=== PATIENT | female | born 1940 | race Caucasian/White ===

== ENCOUNTER 2024-03-23 22:33 | Observation (INO) | payer MEDICARE, SELFPAY ==
--- NOTE | ~2024-03-23 | XR_ITS ---
Portable chest x-ray Comparison: None Clinical History: Pneumonia Findings: Possible minimal right perihilar haziness. Possible minimal interstitial prominence diffus roxy. Cardiomediastinal silhouette is unremarkable. Bones and soft tissues are unremarkable. Impression: Suspected mild haziness the right perihilar region. Correlate for minimal pulmonary edema or early/mi ld pneumonia. Possible minimal interstitial edema versus chronic interstitial disease/COPD change. Reviewed, dictated and finalized at [facility]. EMS APPLICATIONS PROGRAMMING LEAD Impression: Suspected mild haziness the right perihilar region. Correlate for minimal pulmo nary edema or early/mild pneumonia. Possible minimal interstitial edema versus chronic interstitial disease/COPD sayra armando.
--- NOTE | ~2024-03-23 | CT_ITS ---
History: Fall PROCEDURE: CT head without contrast. COMPARISON: None TECHNIQUE: Axial imaging of the head performed from the skull base to the vertex without IV contrast. Sagittal a nd coronal reformations obtained. Examination is limited by motion artifact DLP: 1513 mGy-cm FINDINGS: The ventricles are enlarged. The dilatation of the ventricles is proportional to the degree of sulcal prominence, not uncommon in the senescent brain. Decreased attenuation is identified within the periventricular white matter, likely secondary to micr ovascular ischemic disease, in a patient of this age. Encephalomalacia and gliosis is identified within the left frontal lobe for which prior cerebral infa rction is suspected. Increased attenuation is identified adjacent to the anterior horn of the left lateral ventricle, poss ibly acute hemorrhage. There is no discrete mass, mass effect or midline shift. Opacification of the left sphenoid sinus. Remaining paranasal sinuses are unremarkable. The mastoid air cells are well aerated. No acute displaced fractures within the overlying cranium. No sequelae of prior craniotomy. Impression: Findings adjacent to the anterior horn of the left lateral ventricle for which acute subarachnoid hem orrhage is suspected within a region of prior cerebral infarction. Comparison with prior imaging is suggested. These findings were discussed with TALIA Nam at 11:30 PM 03/23/2024 Reviewed, dictated and finalized at location A. KEN VACCINATOR Impression: Findings adjacent to the anterior horn of the left lateral ventricle for which acute subarachnoid hemorrhage is suspected within a region of prior cerebral in farction. Comparison with prior imaging is suggested. These findings were discussed with TALIA Nam at 11:30 PM 03/23/2024
--- NOTE | ~2024-03-23 | XR_ITS ---
HISTORY: fall, thigh bruise medially COMPARISON: None TECHNIQUE: 2 views of the left femur were performed FINDINGS: No acute or subacute fracture. Joint spaces are preserved and alignment is normal. Vascular calcifications are present. Age-appropriate mineralization. IMPRESSION: No acute fracture, as detailed above. Reviewed, dictated and finalized at location A. DE SALES ADVERTISING EXECUTIVE
--- NOTE | ~2024-03-23 | CT_ITS ---
History: Unwitnessed fall PROCEDURE: CT cervical spine without intravenous contrast. COMPARISON: None TECHNIQUE: Multiple contiguous axial images of the cervical spine were performed without the administration of i ntravenous contrast. Examination is markedly limited by motion artifact. DLP: 357 mGy-cm FINDINGS: Alignment evaluation is limited secondary to motion artifact, specifically at the levels of C3/C4, C5 /C6 and C6/C7. Acute fractures at these levels cannot be excluded based on the current imaging (secon deena to motion artifact). The bilateral lung apices are unremarkable. No soft tissue abnormality is present. The airway is patent. Impression: Limited examination secondary to motion artifact at the levels of C3/C4, C5/C6 and C6/C7. Acute fract ures at these levels cannot be excluded based on the current imaging secondary to motion artifact aer ated No discrete fracture is identified within the remaining levels of the cervical spine, as detailed abo ve Reviewed, dictated and finalized at location A. ATRIST ORTHOPEDIC Impression: Limited examination secondary to motion artifact at the levels of C3/C4, C5/C6 and C6/C7. Acute fractures at these levels cannot be excluded based on the curr ent imaging secondary to motion artifact aerated No discrete fracture is identified within the remaining levels of the cervical spine, as detailed above
[2024-03-23 22:30] VITALS: BP 113/81; PULSE 63; RESP 14; TEMP 36.6; O2SAT 100
--- NOTE | 2024-03-23 22:49 | ED_ITS ---
HPI - Fall General Chief Complaint: Fall Stated Complaint: fall, thigh bruise Source: patient Mode of arrival: EMS Limitations: dementia History of Present Illness HPI Narrative: This is an 83 year old female who presents to the ED for chief complaint of unwitnessed fall from memory care facility today. There were concern is patient had a bruise to the left thigh. They estimated she was down for 1-2 hours accor ding to EMS. She is alert oriented x1 and at her baseline according to EMS. Patient is unable to provide any meaningful history. Related Data Allergies Allergy/AdvReac Type Severity Reaction Status Date / Time Influenza Virus Vaccines Allergy Unknown Verified 03/23/24 22:40 Review of Systems Review of Systems: All systems as dictated in HPI Exam Narrative: GENERAL: Appears chronically ill frail HEAD: Normocephalic, atraumatic. EYES: PERRLA and EOMI. ENT: Nares clear, no rhinorrhea or epistaxis. Mucous membranes moist. Oropharynx without tonsillar hypertrophy exudate or other lesions. NECK: Supple. No adenopathy or masses. CHEST: No respiratory distress. Clear to auscultation. No wheezes rales or rhonchi HEART: Regular rate and rhythm. No murmur heard. Normal peripheral pulses. ABDOMEN: Soft, nontender, nondistended, normal active bowel sounds. MSK: Normal range of motion. No edema. SKIN: Moderate ecchymosis to the left medial thigh. Warm, dry, no rash. NEURO: Alert and oriented x1. Moving all 4 extremities spontaneously. PSYCH: Normal mood and affect. Course Vital Signs Vital signs: Vital Signs Temperature 97.9 F 03/23/24 22:30 Pulse Rate 63 03/23/24 22:30 Respiratory Rate 14 03/23/24 22:30 Blood Pressure 113/81 03/23/24 22:30 Pulse Oximetry 100 03/23/24 22:30 Oxygen Delivery Room Air 03/23/24 22:30 Temperature 97.9 F 03/23/24 22:30 Pulse Rate 63 03/23/24 22:30 Respiratory Rate 14 03/23/24 22:30 Blood Pressure 113/81 03/23/24 22:30 Pulse Oximetry 100 03/23/24 22:30 Oxygen Delivery Room Air 03/23/24 22:30 MDM - Fall MDM Narrative Medical decision making narrative: This is a 83-year-old female who presents to the ED for unwitnessed fall for memory care facility. She arrives at her mental status baseline according to EMS which is A&O x1. Vitals are normal. She is moving all 4 extremities but unable to provide any meaningful history or participate in a meaningful neuro exam. Left femur x-ray shows no acute findings. CT imaging of the cervical spine is negative. 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 Comparison with prior imaging is suggested. Was able to discussed the above findings with the patient's family, son and [id number]. The son is the durable POA. He is expressing that their wishes and the patient's wishes would be for her to be made comfort measures only. They are okay with treating any dehydration or infections with IV treatments, however do not want any advanced procedures and do not want any kind of surgery for this potentially acute brain bleed. They understand that this condition could be life-threatening and want to avoid any potentially painful procedures. They have been in touch with hospice in the past, company called [employer]. State that they want to call this company again and we discussed potentially having the patient become hospice again. On re-examination, the patient is resting comfortably, however family does feel that she may be a little more disoriented compared to baseline. Unfortunately her current assisted living is unable to provide any kind of 1 on 1 care. Will therefore admit the patient for pain control and comfort measures. Hospice will consult tomorrow. Discharge Plan Discharge Clinical Impression: Intracerebral hemorrhage, Fall, Advanced dementia Patient Disposition: Still a Patient Condition: Stable Patient Language: Greenlandic Follow-up/Referrals: UNKNOWN,DOCTOR [Primary Care Provider] -
[2024-03-24] VITALS (7 sets, daily range): BP systolic 106–121; BP diastolic 52–66; PULSE 62–76; RESP 12–18; O2SAT 96–100
[2024-03-24 02:36] LABS: Basophils Absolute Auto 0.1 K/mm3 (0.0-0.1); Basophils Percent Auto 0.5 % (0.2-1.2); Eosinophils Absolute Auto 0.2 K/mm3 (0-0.3); Eosinophils Percent Auto 1.4 % (0-4.4); Hematocrit 24.1 % (37.0-47.0); Hemoglobin 7.7 g/dL (12.0-15.0); Immature Granulocyte Absolute 0.04 K/mm3 (0.00-0.031); Immature Granulocyte Percent A 0.4 % (0-0.5); Lymphocytes Absolute Auto 2.34 K/mm3 (0.9-3.2); Lymphocytes Percent Auto 22.2 % (18.3-44.2); Mean Corpuscular Hemoglobin 28.5 pg (26-34); Mean Corpuscular Volume 89.3 fl (80-100); Monocytes Absolute Auto 0.9 K/mm3 (0.1-0.6); Monocytes Percent Auto 8.6 % (2.6-8.5); Neutrophils Percent Auto 66.9 % (45.5-73.1); Platelet Count Result 257 k/mm3 (150-375); Red Cell Distribution Width 17.7 % (11.5-14.5); White Blood Count 10.5 K/mm3 (4.5-10.0)
[2024-03-24 02:39] LABS: Add Urine Microscopic? NO; Appearance Urine Clear (Clear); Bilirubin Urine Negative (Negative); Blood Urine Negative (Negative); Color Urine Yellow (Yellow); Glucose Urine UA Negative (Negative); Ketones Urine Trace mg/dL (Negative); Leukocyte Esterase Ur Negative LEU/UL (Negative); Nitrate Urine Negative (Negative); Protein Urine Negative (Negative); Specific Grav Ur 1.021 (1.001-1.035); pH Urine 5.5 (5.0-9.0)
--- NOTE | 2024-03-24 02:56 | PM.IMHP ---
H&P: HPI History of Present Illness Date/Time: 03/24/24 02:56 Chief Complaint: Fall Narrative: Patient presents from [facility] with report of a fall. History is taken from son and [id number]-[id number] present in the ER. The patient has a history of advanced dementia typically A&O x1. She was recently moved to [facility] as her who she lives with who also has dementia was no longer able to live at a previous facility due to reported behavioral disturbance. Patient has a history of multiple falls with a previous brain bleed. [id number] reports the patient was on hospice but then they transition to palliative care so the patient could get physical therapy. The patient graduated from wheelchair to walker. None the less, a CT head without contrast was performed in the [facility] on 03/23/2024 which demonstrated increased attenuation adjacent to the anterior horn of the left lateral ventricle indicating possible acute hemorrhage. With this report family has independently decided to pursue hospice again. [facility] was contacted they do not feel they can care for the patient therefore the patient will be admitted overnight and care coordination consulted to help coordinate hospice. The patient is currently more confused than usual per the family very agitated with nonpurposeful movements and unintelligible words. Review of Systems Review of Systems: ROS unobtainable: Yes unobtainable due to mental status Meds Home Medications and Allergies Allergies Allergy/AdvReac Type Severity Reaction Status Date / Time Influenza Virus Vaccines Allergy Unknown Verified 03/23/24 22:40 Vital Signs Vital Signs - 24 hr 03/23/24 22:30 03/24/24 02:34 Temperature 97.9 F Pulse Rate 63 75 Respiratory Rate 14 16 Blood Pressure 113/81 113/63 Pulse Oximetry 100 100 Oxygen Delivery Room Air Exam Const: Other: Agitated. Nonpurposeful movements. Eyes: Other: Patient will not open her eyes for examination Resp: Effort & Inspection: normal respiratory effort Cardio: Rate: regular rate Rhythm: regular rhythm Extrem: General: no edema H&P: Results Labs Labs: Short CBC 03/24/24 Range/Units 02:28 WBC 10.5 H (4.5-10.0) K/mm3 Hgb 7.7 L (12.0-15.0) g/dL Hct 24.1 L (37.0-47.0) % Plt Count 257 (150-375) k/mm3 Urine 03/24/24 Range/Units 02:28 Urine Color Yellow (Yellow) Urine Appearance Clear (Clear) Urine pH 5.5 (5.0-9.0) Ur Specific [place] 1.021 (1.001-1.035) Urine Protein Negative (Negative) mg/dL Urine Glucose (UA) Negative (Negative) mg/dL Assessment and Plan Assessment and plan (1) Fall: Code(s): W19.XXXA - Unspecified fall, initial encounter Status: Acute (2) Intracerebral hemorrhage: Code(s): I61.9 - Nontraumatic intracerebral hemorrhage, unspecified Status: Acute (3) Advanced dementia: Code(s): F03.C0 - Unspecified dementia, severe, without behavioral disturbance, psychotic disturbance, mood disturbance, and anxiety Status: Acute Plan Comfort care. Care coordination consulted to help arrange hospice. Morphine Ativan and atropine p.r.n.. DNR. Hospitalist MIPS Advance Care Plan I have confirmed that the patient's Advanced Care Plan is present, code status is documented, or surrogate decision maker is listed in patient medical record.: Yes Medication Reconciliation I have utilized all available resources to obtain, update and review the patients current medications (includes all prescriptions, OTC, herbals, cannabis, and nutritional supplements).: Yes
[2024-03-24 03:01] LABS: Alanine Aminotransferase 20 U/L (6-35); Albumin Level 3.6 g/dL (3.5-5.1); Alkaline Phosphatase 104 U/L (38-126); Anion Gap 11 mmol/L (4-12); Aspartate Amino Transferase 31 U/L (14-36); Bilirubin,Total 0.7 mg/dL (0.2-1.3); Blood Urea Nitrogen 28 mg/dL (7-17); Calcium 8.9 mg/dL (8.4-10.2); Carbon Dioxide 17 mmol/L (22-30); Chloride 113 mmol/L (98-107); Estimated CRCL calculation 36 ml/min; Estimated Glomerular Filt Rate > 60; Glucose 88 mg/dL (65-110); Potassium 4.2 mmol/L (3.4-5.0); Sodium 141 mmol/L (137-145)
--- NOTE | 2024-03-24 07:42 | PC.NURSE ---
RN spoke with staff at [facility] who state they will fax over pt med list
--- NOTE | 2024-03-24 09:26 | PC.NURSE ---
RN spoke with staff at [facility] again asking for them to fax over pt med list
--- NOTE | 2024-03-24 11:34 | PC.NURSE ---
Repeat call with message left for Dr Coyle. Family is not happy that patient is still in ED and has not seen admitting MD, they are upset that patient has not received a diet order or her medications. Explained to family that calls have been placed but not answered at this time
--- NOTE | 2024-03-24 12:00 | PC.NURSE ---
Family made aware spoke with Dr Coyle-he reports that he will be here soon . Also aware that fax of patients medication just received from [facility]
--- NOTE | 2024-03-24 12:39 | PC.NURSE ---
Johnie -Trailer Technician at bedside speaking with family. Meal tray at bedside
--- NOTE | 2024-03-24 13:23 | PC.NURSE ---
Patient alert and oriented to self, answering simple questions without difficultly- at baseline as per family report. Bed mobility initially hesitant but sat up from bed with min 1 assist. Assisted up to sit in wheelchair with min assist of 1- patient hesitant initially with voiced fear of falling. Transferred with 14 steps, including 8 backward steps with wheeled walker and verbal cues with minimal tactile contact. Patient observed earlier to feed self with tray set up. Family at bedside with patient and instructed to call for any changes to sitting position or mental status as well as any complaints/concerns. They voiced understanding. Patient tolerating activity well and finished lunch while sitting in chair.
--- NOTE | 2024-03-24 13:28 | PM.DS ---
DS: Admitting Diagnosis Discharge Date 03/24/2024 Admitting Diagnosis Fall DS: Discharge Diagnosis Discharge Diagnosis (1) Fall: Code(s): W19.XXXA - Unspecified fall, initial encounter Status: Acute (2) Intracerebral hemorrhage: Code(s): I61.9 - Nontraumatic intracerebral hemorrhage, unspecified Status: Acute (3) Advanced dementia: Code(s): F03.C0 - Unspecified dementia, severe, without behavioral disturbance, psychotic disturbance, mood disturbance, and anxiety Status: Acute DS: Summary Hospital Course Hospital Course: Patient presents from [facility] with report of a fall. History is taken from son and nezxulkr-ne-ujk present in the ER. The patient has a history of advanced dementia typically A&O x1. She was recently moved to [facility] as her who she lives with who also has dementia was no longer able to live at a previous facility due to reported behavioral disturbance. Patient has a history of multiple falls with a previous brain bleed. [id number] reports the patient was on hospice but then they transition to palliative care so the patient could get physical therapy. The patient graduated from wheelchair to walker. Nonetheless, a CT head without contrast was performed in the [facility] on 03/23/2024 which demonstrated increased attenuation adjacent to the anterior horn of the left lateral ventricle indicating possible acute hemorrhage. With this report family has independently decided to pursue hospice again. [facility] was contacted they do not feel they can care for the patient therefore the patient was admitted overnight. Care coordination was consulted and hospice evaluated. She will be planned to get her back to [facility] with hospice care which was arranged with the help of care coordination Time Spent with Patient Time attestation: Total time spent providing and/or coordinating discharge services: 40 Exam Narrative: GENERAL: Appears chronically ill frail HEAD: Normocephalic, atraumatic. NECK: Supple. No adenopathy or masses. CHEST: No respiratory distress. Clear to auscultation. No wheezes rales or rhonchi HEART: Regular rate and rhythm. No murmur heard. Normal peripheral pulses. ABDOMEN: Soft, nontender, nondistended, normal active bowel sounds. MSK: Normal range of motion. No edema. SKIN: Moderate ecchymosis to the left medial thigh. Warm, dry, no rash. NEURO: Alert and oriented x1. Moving all 4 extremities spontaneously. PSYCH: Normal mood and affect. DS: Data Data Completed and Pending Labs on day of discharge: Labs from last 24 hours 03/24/24 02:28 WBC 10.5 H RBC 2.70 L Hgb 7.7 L Hct 24.1 L MCV 89.3 MCH 28.5 MCHC 32.0 RDW 17.7 H Plt Count 257 MPV 11.0 H Immature Gran % (Auto) 0.4 Neut % (Auto) 66.9 Lymph % (Auto) 22.2 Wallace % (Auto) 8.6 H Eos % (Auto) 1.4 Baso % (Auto) 0.5 Lymph # (Auto) 2.34 Wallace # (Auto) 0.9 H Eos # (Auto) 0.2 Baso # (Auto) 0.1 Abs Immat Gran (auto) 0.04 H Absolute Neuts (auto) 7.0 H Absolute Nucleated RBC 0.000 Nucleated RBC % 0.0 Sodium 141 Potassium 4.2 Chloride 113 H Carbon Dioxide 17 L Anion Gap 11 BUN 28 H Creatinine 0.83 Estim Creat Clear Calc 36 Estimated GFR > 60 Glucose 88 Calcium 8.9 Total Bilirubin 0.7 AST 31 ALT 20 Alkaline Phosphatase 104 Total Protein 7.0 Albumin 3.6 Urine Color Yellow Urine Appearance Clear Urine pH 5.5 Ur Specific [place] 1.021 Urine Protein Negative Urine Glucose (UA) Negative Urine Ketones Trace H Ur Blood (Man) Negative Urine Nitrate Negative Urine Bilirubin Negative Urine Urobilinogen 1.0 Leukocyte Esterase Rfl Negative Imaging Radiologist's impression: ITS Impressions Femur X-Ray 03/23/24 23:17 IMPRESSION: No acute fracture, as detailed above. Head CT 03/23/24 23:27 Impression: Findings adjacent to the anterior horn of the left lateral ventricle for which acute subarachnoid hemorrhage is suspected within a region of prior cerebral infarction. Comparison with prior imaging is suggested. These findings were discussed with TALIA Nam at 11:30 PM 03/23/[address] 03/23/24 23:44 Impression: Limited examination secondary to motion artifact at the levels of C3/C4, C5/C6 and C6/C7. Acute fractures at these levels cannot be excluded based on the current imaging secondary to motion artifact aerated No discrete fracture is identified within the remaining levels of the cervical spine, as detailed above Chest X-Ray 03/24/24 06:27 Impression: Suspected mild haziness the right perihilar region. Correlate for minimal pulmonary edema or early/mild pneumonia. Possible minimal interstitial edema versus chronic interstitial disease/COPD change. Discharge Plan Discharge Attending physician on discharge: Naresh Coyle Discharging Clinician: Naresh Coyle Anticipated Discharge Date/Time: 03/24/24 13:32 Patient Disposition: Hospice - Medical Facility Activity: as tolerated Diet: as tolerated Patient Language: Congolese Stand Alone Forms: General Discharge Information Follow-up/Referrals: UNKNOWN,DOCTOR [Primary Care Provider] - 1 Week Discharge Medications: Continued amlodipine 5 mg tablet 5 mg PO DAILY diltiazem HCl 30 mg tablet 30 mg PO DAILY@1700 furosemide 40 mg tablet 40 mg PO DAILY levetiracetam 500 mg tablet 500 mg PO Q12H sertraline 100 mg tablet 100 mg PO Q24H hydralazine 25 mg tablet 25 mg PO DAILY famotidine 20 mg tablet 20 mg PO DAILY metoprolol tartrate 25 mg tablet 25 mg PO Q12H atorvastatin 40 mg tablet 40 mg PO QPM Date of admission: 03/24/24 03:05 Primary Care Provider: UNKNOWN,DOCTOR Admitting Provider: Elena Watson Attending physician on admission: Elena Watson Condition: Stable
--- NOTE | 2024-03-24 13:29 | PCCCNOTE ---
Call to ED for determination if pt can go back to [facility] in [place] (Memory Care). Pt evaluated by Kaleigh Mena on mobility and basic ADL's. Pt able to stand privot to with min assist of 1. Pt walked with wheeled walker total of 14 steps with min tactile contact. Pt able to feed self after tray set up. Pt can go back to [place].
== END 2024-03-24 14:05 | disposition hospice, inpatient (51) ==
LOC: ANHED 03-24 03:10 → ANH3MEDSUR 03-24 04:27
PROVIDERS: Admitting Provider General Practice; Emergency Provider Physician Assistant; Visit Provider Internal Medicine
DX: I61.9 Nontraumatic intracerebral hemorrhage, unspecified (principal); W19.XXXA Unspecified fall, initial encounter; F03.C0 Unspecified dementia, severe, without behavioral disturbance, psychotic disturbance, mood disturbance, and anxiety; Z91.81 History of falling; Z88.7 Allergy status to serum and vaccine; Z79.899 Other long term (current) drug therapy
CPT/HCPCS: 36415; 70450; 71045; 72125; 73552; 80053; 81003; 85025; 96374; 96375; 99285; A9270; G0378

== ENCOUNTER 2024-04-23 22:53 | Emergency (ER) | payer MEDICARE, SELFPAY ==
[2024-04-23 22:56] VITALS: BP 83/49; PULSE 74; RESP 15; TEMP 36.5; O2SAT 100
[2024-04-23 22:58] VITALS: BP 89/64; PULSE 74; RESP 15; TEMP 36.1; O2SAT 100
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
[2024-04-23 23:19] VITALS: BP 118/65; PULSE 65; RESP 18; O2SAT 100
--- NOTE | 2024-04-23 23:30 | PC.NURSE ---
this Rn spoke with LUIS Wooten at [place] to give patient update and discharge instructions.
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
== END 2024-04-24 | disposition hospice, home (50) ==
PROVIDERS: Emergency Provider Emergency Medicine
DX: S01.81XA Laceration without foreign body of other part of head, initial encounter (principal); W19.XXXA Unspecified fall, initial encounter
CPT/HCPCS: 12011; 99282